=== PATIENT | male | born 1980 | race Caucasian/White ===

== ENCOUNTER 2021-02-09 14:10 | Emergency (ER) | payer SELFPAY ==
[~2021-02-09] VITALS: Ht 172.7 cm; Wt 80.0 kg
[2021-02-09] MEDS ORDERED: AMOX/K CLAV875 M1 PO (17:22)
[2021-02-09 18:06] VITALS: BP 114/63
== END 2021-02-09 18:06 | disposition home or self-care (01) | DRG 605 ==
LOC: ED 14:10
PROC: 0HQLXZZ Repair Left Lower Leg Skin, External Approach (ICD-10-PCS; principal; 2021-02-09)
DX: S81.852A Open bite, left lower leg, initial encounter (principal); W54.0XXA Bitten by dog, initial encounter

== ENCOUNTER 2021-02-13 22:57 | Observation (INO) | payer SELFPAY ==
[~2021-02-13] VITALS: Ht 177.8 cm; Wt 79.5 kg
[~2021-02-13 22:57] MED LIST: AMOX/K CLAV875 M1 PO
[2021-02-13] MEDS ORDERED: ADDERALL30 MG PO (23:40)
[2021-02-14 00:30] LABS: ALBUMIN 3.3 g/dL (3.2-5.0); ALKALINE PHOSPHATASE 66 u/l (38-126); ANION GAP 9 (6-22 (CALC)); BILIRUBIN, TOTAL 0.4 mg/dL (0.0-1.4); BUN 15 mg/dL (9-20); BUN/CREATININE RATIO 17 (12-20 (CALC)); CARBON DIOXIDE 30 mmol/l (22-30); CHLORIDE 104 mmol/l (95-108); CREATININE 0.9 mg/dL (0.7-1.3); GFR > 60 ML/MIN (>=60 (CALC)); GFR FOR AFR.AMER. > 60 ML/MIN (>=60 (CALC)); HEMATOCRIT 35.4 % (39.0-50.0); HEMOGLOBIN 11.4 g/dl (14.0-18.0); IMMATURE GRANULOCYTES 0.3 % (0.0-5.0); MEAN CELL VOLUME 92.7 fL CALC (80.0-100.0); MEAN CORPUSCULAR HGB 29.8 pG CALC (26.0-32.0); MEAN CORPUSCULAR HGB CONC 32.2 g/dL CAL (32.0-36.0); NEUT# 4.9 thou/uL (1.82-7.42); POTASSIUM 3.9 mmol/l (3.5-5.1); RED BLOOD COUNT 3.82 mill/uL (4.70-6.10); RED CELL DISTRI WIDTH 12.5 % (11.5-15.5); SGOT/AST 33 u/l (17-59); SODIUM 139 mmol/l (137-146)
[2021-02-14 08:11] VITALS: BP 124/82
[2021-02-14] MEDS ORDERED: VALIUM2 MG PO (15:23)
== END 2021-02-14 11:14 | disposition left against medical advice (07) | DRG 603 ==
LOC: ED 22:57 → ED-I 02-14 04:10 → ED 02-14 04:25 → MS2 02-14 04:26
PROVIDERS: Emergency Medicine; ADMIT Hospitalist; ATTEND Hospitalist
DX: L03.116 Cellulitis of left lower limb (principal); S81.852A Open bite, left lower leg, initial encounter; F41.9 Anxiety disorder, unspecified; W54.0XXA Bitten by dog, initial encounter; Z20.822 Contact with and (suspected) exposure to COVID-19
CPT/HCPCS: A9579; G0378; Q9967

== ENCOUNTER 2021-02-14 12:47 | Observation (INO) | payer SELFPAY ==
[~2021-02-14] VITALS: Ht 177.8 cm; Wt 72.0 kg
[~2021-02-14 12:47] MED LIST changes: +ADDERALL30 MG PO
[2021-02-14] MEDS ORDERED: VALIUM2 MG PO (15:23)
[2021-02-14 15:41] LABS: IMMATURE GRANULOCYTES 0.1 % (0.0-5.0); MEAN CELL VOLUME 93.1 fL CALC (80.0-100.0); MEAN CORPUSCULAR HGB 30.1 pG CALC (26.0-32.0); MEAN CORPUSCULAR HGB CONC 32.3 g/dL CAL (32.0-36.0); NEUT# 5.74 thou/uL (1.82-7.42); RED BLOOD COUNT 4.49 mill/uL (4.70-6.10); RED CELL DISTRI WIDTH 12.4 % (11.5-15.5)
[2021-02-14 15:42] LABS: HEMATOCRIT 41.8 % (39.0-50.0); HEMOGLOBIN 13.5 g/dl (14.0-18.0)
[2021-02-14 15:55] LABS: ACT PARTIAL THROMBO TIME 25.4 SECONDS (20.0-32.5); INTERNATIONAL NORMALIZED RATIO 0.9 RATIO (0.7-1.3); PROTHROMBIN TIME 9.1 SECONDS (9.0-12.5)
[2021-02-14 16:01] LABS: ALKALINE PHOSPHATASE 78 u/l (38-126); ANION GAP 8 (6-22 (CALC)); BILIRUBIN, TOTAL 0.4 mg/dL (0.0-1.4); BUN 10 mg/dL (9-20); BUN/CREATININE RATIO 13 (12-20 (CALC)); CARBON DIOXIDE 34 mmol/l (22-30); CHLORIDE 103 mmol/l (95-108); CREATININE 0.8 mg/dL (0.7-1.3); GFR > 60 ML/MIN (>=60 (CALC)); GFR FOR AFR.AMER. > 60 ML/MIN (>=60 (CALC)); POTASSIUM 3.8 mmol/l (3.5-5.1); SGOT/AST 32 u/l (17-59); SODIUM 141 mmol/l (137-146)
[2021-02-14 16:05] LABS: TOTAL PROTEIN 7.4 g/dL (6.3-8.2)
[2021-02-14 16:15] VITALS: BP 158/73
[2021-02-14 19:10] VITALS: BP 125/65
[2021-02-15] VITALS (10 sets, daily range): BP systolic 105–144; BP diastolic 60–89
[2021-02-15 05:37] LABS: HEMOGLOBIN 12.1 g/dl (14.0-18.0); MEAN CELL VOLUME 90.2 fL CALC (80.0-100.0); MEAN CORPUSCULAR HGB 30.3 pG CALC (26.0-32.0); MEAN CORPUSCULAR HGB CONC 33.6 g/dL CAL (32.0-36.0); RED BLOOD COUNT 3.99 mill/uL (4.70-6.10); RED CELL DISTRI WIDTH 12.4 % (11.5-15.5)
[2021-02-15 05:52] LABS: BUN 12 mg/dL (9-20); BUN/CREATININE RATIO 13 (12-20 (CALC)); CHLORIDE 106 mmol/l (95-108); CREATININE 0.9 mg/dL (0.7-1.3); GFR > 60 ML/MIN (>=60 (CALC)); GFR FOR AFR.AMER. > 60 ML/MIN (>=60 (CALC)); POTASSIUM 3.7 mmol/l (3.5-5.1); SODIUM 138 mmol/l (137-146)
[2021-02-15 05:54] LABS: ANION GAP 10 (6-22 (CALC)); CARBON DIOXIDE 26 mmol/l (22-30)
[2021-02-16] VITALS: BP 111/70
[2021-02-16 03:42] VITALS: BP 103/64
[2021-02-16 05:18] LABS: HEMATOCRIT 36.5 % (39.0-50.0); HEMOGLOBIN 12.2 g/dl (14.0-18.0); MEAN CELL VOLUME 89.9 fL CALC (80.0-100.0); MEAN CORPUSCULAR HGB CONC 33.4 g/dL CAL (32.0-36.0); RED BLOOD COUNT 4.06 mill/uL (4.70-6.10); RED CELL DISTRI WIDTH 12.4 % (11.5-15.5)
[2021-02-16 05:58] LABS: ANION GAP 10 (6-22 (CALC)); BUN 12 mg/dL (9-20); BUN/CREATININE RATIO 14 (12-20 (CALC)); CARBON DIOXIDE 27 mmol/l (22-30); CHLORIDE 106 mmol/l (95-108); CREATININE 0.9 mg/dL (0.7-1.3); GFR > 60 ML/MIN (>=60 (CALC)); GFR FOR AFR.AMER. > 60 ML/MIN (>=60 (CALC)); POTASSIUM 4.2 mmol/l (3.5-5.1); SODIUM 139 mmol/l (137-146)
[2021-02-16 07:52] VITALS: BP 122/82
[2021-02-16] MEDS ORDERED: HYDROCO/APAP1 TA9 PO (09:22)
== END 2021-02-16 09:43 | disposition home or self-care (01) | DRG 603 ==
LOC: ED 12:47 → ED-I 14:00 → ED 14:32 → MS2 14:33
PROVIDERS: Nurse Practitioner; ADMIT Hospitalist; ATTEND Hospitalist
PROC: 0J9P0ZZ Drainage of Left Lower Leg Subcutaneous Tissue and Fascia, Open Approach (ICD-10-PCS; principal; 2021-02-15)
DX: L02.416 Cutaneous abscess of left lower limb (principal); L03.116 Cellulitis of left lower limb; S81.852A Open bite, left lower leg, initial encounter; F41.9 Anxiety disorder, unspecified; F43.10 Post-traumatic stress disorder, unspecified; W54.0XXA Bitten by dog, initial encounter; Z20.822 Contact with and (suspected) exposure to COVID-19
CPT/HCPCS: A9579; G0378; J0131; J1650; Q9967